=== PATIENT | female | born 1990 | race Caucasian/White ===

== ENCOUNTER 2022-06-16 17:08 | Emergency (ER) | payer BC, SELFPAY ==
[2022-06-16 17:19] VITALS: BP 125/82; PULSE 130; RESP 18; TEMP 36.6; O2SAT 100; BMI 22.7
[2022-06-16 17:43] VITALS: BP 126/87; PULSE 99; RESP 16; O2SAT 100
[2022-06-16 17:55] VITALS: O2SAT 99
[2022-06-16] MEDS: dilTIAZem 30 MG TABLET PO (17:59)
[2022-06-16 18:02] VITALS: BP 119/80; PULSE 97; RESP 16; O2SAT 100
--- NOTE | 2022-06-16 18:09 | ED.GENADULT ---
HPI - General Adult General Date Seen: 06/16/22 Chief complaint: Arrhythmia/Palpitations Stated complaint: heart episode, sent from [facility] Time Seen by Provider: 06/16/22 17:30 Source: patient and family Mode of arrival: ambulatory Limitations: no limitations History of Present Illness HPI narrative: Patient is a 31-year-old who has been having trouble for a while now with tachycardia. She has been seen a couple times by Cardiology and is currently wearing a monitor. She is supposed to see the java integration developer here in a couple of weeks. She was at work at the [facility] [employer] [facility] today when she developed tachycardia, had rates up into the 160s, and had an EKG done. I have access to that EKG and this does appear to be a sinus tachycardia to me, I see P-waves generally throughout. She gets somewhat shaky feeling when this happens. She has not had any lightheadedness or syncope. She does not get chest pain per se. She has not been started in any kind of beta-markel or calcium channel markel therapy as apparently at this point the rhythm had not been caught on a tracing. She does have a history of some sort of nodules in her neck which have been biopsied. She had thyroid testing done a little over year ago and this was normal. General health is otherwise good. She does not smoke. Related Data Home Medications Medication Instructions Recorded Confirmed levetiracetam 250 mg tablet 250 mg PO BID 06/16/22 06/16/22 (Keppra) omeprazole 20 mg capsule,delayed 20 mg PO DAILY 06/16/22 06/16/22 release Previous Rx's Medication Instructions Recorded diltiazem HCl 60 mg 60 mg PO BID #60 caps 06/16/22 capsule,extended release 12 hr Allergies Allergy/AdvReac Type Severity Reaction Status Date / Time clavulanic acid Allergy Intermediate Diarrhea Verified 06/16/22 18:09 [From Augmentin] Review of Systems Status of ROS: Reports: 10 or more systems reviewed and unremarkable except as noted in History and below [facility] Medical History (Updated 06/16/22 @ 19:18 by Lilli Rodgers MD) Choroid plexus cyst Chronic headache Chronic rhinosinusitis GERD without esophagitis Hiatal hernia Multinodular goiter Paroxysmal SVT (supraventricular tachycardia) Seizure disorder Surgical History (Updated 06/16/22 @ 18:22 by Jad Russell RN) History of breast biopsy History of esophagogastroduodenoscopy (EGD) History of tonsillectomy and adenoidectomy Social History Smoking Status: Never smoker Do you use any of these nicotine containing products: None Second hand tobacco smoke exposure: No How often do you have a drink containing alcohol: never How often do you have six or more drinks on one occasion: Never AUDIT-C Alcohol total score: 0 Non-prescribed substance use: denies use Exam Narrative: Exam Narrative: Vital signs as noted above. In general, an alert, well-appearing patient. Head: Normocephalic, atraumatic. Eyes: Pupils are equal reactive. Extraocular movements are full. Conjunctivae are normal. ENT: Mucous membranes are moist. Throat is normal. Neck: Supple without lymphadenopathy. She does have some fullness adjacent to thyroid bilaterally, this is apparently previously been worked up. I do not feel any other significant adenopathy, no other masses. No stridor. Heart: Initially tachycardic and regular, no murmur. Lungs: Clear bilaterally. No increased work of breathing, crackles or wheezes. Abdomen: Soft and nontender. No organomegaly. Extremities: Well perfused. No edema. No calf tenderness. Pulses intact. Neurologic: Patient is alert and oriented to person and place. Speech is fluent. Face is symmetric. Moves all extremities equally. Affect: Somewhat anxious. Skin: Warm and dry. Well perfused. Const: Vital Signs, click to edit/add: Vital Signs - 24 hr 06/16/22 17:19 06/16/22 17:43 06/16/22 17:55 Temperature 98 F Pulse Rate 99 Pulse Rate [Pulse Oximeter] 130 H Respiratory Rate 18 16 Blood Pressure 126/87 Blood Pressure [Ri ght Upper Arm] 125/82 Pulse Oximetry 100 100 99 Oxygen Delivery Me thod Room Air 06/16/22 18:02 06/16/22 18:31 Temperature Pulse Rate 97 83 Pulse Rate [Pulse Oximeter] Respiratory Rate 16 16 Blood Pressure 119/80 112/75 Blood Pressure [Ri ght Upper Arm] Pulse Oximetry 100 100 Oxygen Delivery Me thod Documenting provider has reviewed patient's vital signs: yes Course Course Hospital Course: On arrival, patient had an EKG which showed a normal sinus rhythm, ventricular rate of 117. I reviewed her EKGs from clinic. By my review, the shows sinus tachycardia, 1 is fairly markedly tachycardic at 160, but I do think this shows a sinus tachycardia with visible P waves throughout. The other is a sinus tachycardia at 1:10 a.m.. There are no ischemic changes. There is a fair amount of baseline waiver on the faster the 2 EKGs. She was maintained on the monitor here. Her heart rate came down nicely without really any intervention, she is running at about 100, sometimes a little slower and sometimes a little faster. She would be interested in being on something at this point to help control heart rate a little bit and I think that is probably reasonable until she sees the java integration developer. Assuming she is only having episodes of sinus tachycardia, I am not sure that the java integration developer will necessarily have a lot to offer and she may need to manage this more medically. As such, I am going to give her 30 mg of diltiazem here. She has been on atenolol in the past and did not like the way a beta-markel made her feel, we have discussed the fact that any kind of medication that blunts her heart rate response probably is going to make her feel a little bit like that but will see if she tolerates the calcium channel markel little better. I am going to check some electrolytes and a TSH just to make sure though still remain normal. Electrolytes and TSH are normal. I did go through a list of questions she had regarding other possible contributing factors such as iron, anemia, B12, vitamin deficiencies, vagal nerve problems etcetera. I am going to add on a hemoglobin for her just to make sure that that is normal, and in fact that has returned at 14.3. Overall of discussed with her that there may in fact not be a simple laboratory answer to why she is having these runs of sinus tachycardia. She does appear well after the dose of 30 mg of diltiazem here. I prescribed diltiazem for home and will see how she does with that. Etiology follow-up, avoid stimulants, which she says she he does. Return is needed for any more symptomatic spells, fainting, significant chest pain shortness of breath etcetera. Also note that she got a little redness on her chest around the area of 1 of the monitor leads, it does not appear that she is reacting to wear her ZIO patch is but more to where we had the monitor lead on. I have suggested that she try some hydrocortisone and Benadryl or Zyrtec. This looks like a contact reaction, not anaphylactic. If this spreads to include the ZIO patch, she may have to discontinue this early. Discuss as needed with Cardiology. Vital Signs Vital signs: Initial Vital Signs Temperature 98 F 06/16/22 17:19 Temperature Source Temporal Artery Scan 06/16/22 17:19 Pulse Rate 130 H 06/16/22 17:19 Respiratory Rate 18 06/16/22 17:19 Blood Pressure 125/82 06/16/22 17:19 Blood Pressure Mean 96 06/16/22 17:19 Blood Pressure Position Supine 06/16/22 17:19 Pulse Oximetry 100 06/16/22 17:19 Oxygen Delivery Method 06/16/22 17:19 Vital Signs Temperature 98 F 06/16/22 17:19 Pulse Rate 130 H 06/16/22 17:19 Respiratory Rate 18 06/16/22 17:19 Blood Pressure 125/82 06/16/22 17:19 Pulse Oximetry 100 06/16/22 17:19 Oxygen Delivery Method 06/16/22 17:19 Temperature 98 F 06/16/22 17:19 Pulse Rate 83 06/16/22 18:31 Respiratory Rate 16 06/16/22 18:31 Blood Pressure 112/75 06/16/22 18:31 Pulse Oximetry 100 06/16/22 18:31 Oxygen Delivery Method 06/16/22 17:19 Medical Decision Making Lab Data Labs: Lab Results 06/16/22 06/16/22 06/16/22 Range/Units 17:35 17:55 17:55 Hgb 14.3 (12.0-16.0) gm/dL Sodium 142 (135-149) mmol/L Potassium 4.0 (3.6-5.1) mmol/L Chloride 110 (96-114) mmol/L Carbon Dioxide 25 (20-32) mmol/L BUN 10 (5-24) mg/dL Creatinine 0.6 (0.5-1.5) mg/dL Estimated Creat Clear 129.69 Estimated GFR 121 ml/min Glucose 130 H (60-115) mg/dL Calcium 9.0 (8.4-10.6) mg/dL TSH 0.908 (0.270-4.200) uIU/mL Discharge Plan Discharge Clinical Impression: Sinus tachycardia Patient Disposition: Home, Self-Care Condition: Improved Instructions: Atrial Tachycardia (ED) Additional Instructions: Follow-up with cardiology as planned. Diltiazem is ordered. Return for significant symptoms, fainting, chest pain, or other worsening. Avoid significant caffeine or energy drinks, or other stimulants. Prescriptions: New diltiazem HCl 60 mg capsule,extended release 12 hr 60 mg PO BID Qty: 60 2RF No Action omeprazole 20 mg capsule,delayed release(DR/EC) 20 mg PO DAILY levetiracetam [Keppra] 250 mg tablet 250 mg PO BID Label Comments: take 1 tab in the morning and 2 tabs in the evening Stand Alone Forms: [employer] Info Instructions
[2022-06-16 18:11] LABS: Chloride* 110 mmol/L (96-114); Sodium* 142 mmol/L (135-149)
[2022-06-16 18:14] LABS: Blood Urea Nitrogen* 10 mg/dL (5-24); Carbon Dioxide* 25 mmol/L (20-32); Creatinine* 0.6 mg/dL (0.5-1.5); Est. Creatinine Clearance* 129.69; Estimated Glomerular Filt Rate 121 ml/min
[2022-06-16 18:15] LABS: Glucose* 130 mg/dL (60-115)
[2022-06-16 18:31] VITALS: BP 112/75; PULSE 83; RESP 16; O2SAT 100
[2022-06-16 18:59] LABS: TSH With Reflex to FT4* 0.908 uIU/mL (0.270-4.200)
[2022-06-16 19:58] LABS: Hemoglobin* 14.3 gm/dL (12.0-16.0)
== END 2022-06-16 19:36 | disposition home or self-care (01) ==
PROVIDERS: Emergency Provider Emergency Medicine; PCP Physician Assistant Medical
DX: R00.0 Tachycardia, unspecified (principal)
CPT/HCPCS: 36415; 80048; 84443; 85018; 93005; 94761; 99284; A9270

== ENCOUNTER 2022-07-29 18:04 | Emergency (ER) | payer BC, SELFPAY ==
[2022-07-29 18:10] VITALS: BP 123/79; PULSE 114; RESP 17; TEMP 36.8; O2SAT 100; BMI 21.9
--- NOTE | 2022-07-29 18:28 | ED.GENADULT ---
HPI - General Adult General Time Seen by Provider: 18:28 Date Seen: 07/29/22 Chief complaint: Arrhythmia/Palpitations Stated complaint: Super high heart rate, Watch saying in the 170s Time Seen by Provider: 07/29/22 18:08 Source: patient Mode of arrival: ambulatory Limitations: no limitations History of Present Illness HPI narrative: Patient is a 32-year-old female has had a history of problems with sinus tachycardia. She is scheduled to see shoe stitcher at [place] for ablation in August. She was on diltiazem for well per Dr. Rodgers, now is on metoprolol as needed. She took a metoprolol when her heart was racing today. She was at her son's [employer] practice sitting in the car and felt her heart racing. She did take a metoprolol about 45 minutes ago. Her heart was she reports no 170s, that is been consistent with what she has had in the past. She appears to be in a sinus tachycardia rhythm of about 110-125 now. She has no shortness of breath she has no chest pain although she generally feels ?washed out when she has this happen.? The patient is scheduled for ablation as mention. She did have recent blood work done at her last ER visit including a normal potassium and normal TSH. She has had no fever chills cough leg swelling or edema bleeding or clotting problems. Related Data Home Medications Medication Instructions Recorded Confirmed levetiracetam 250 mg tablet 250 mg PO BID 06/16/22 06/16/22 (Keppra) omeprazole 20 mg capsule,delayed 20 mg PO DAILY 06/16/22 06/16/22 release metoprolol tartrate 25 mg tablet 25 mg PO Q6H PRN palpitations 07/29/22 07/29/22 Previous Rx's Medication Instructions Recorded diltiazem HCl 60 mg 60 mg PO BID #60 caps 06/16/22 capsule,extended release 12 hr Allergies Allergy/AdvReac Type Severity Reaction Status Date / Time clavulanic acid Allergy Intermediate Diarrhea Verified 06/16/22 18:09 [From Augmentin] Review of Systems Status of ROS: Reports: 6 or more systems reviewed and unremarkable except as noted in History and below [facility] Medical History Choroid plexus cyst ?G93.0 - Cerebral cysts (ICD-10) Chronic headache ?R51.9 - Headache, unspecified (ICD-10) ?G89.29 - Other chronic pain (ICD-10) Chronic rhinosinusitis ?J31.0 - Chronic rhinitis (ICD-10) ?J32.9 - Chronic sinusitis, unspecified (ICD-10) GERD without esophagitis ?K21.9 - Gastro-esophageal reflux disease without esophagitis (ICD-10) Hiatal hernia ?K44.9 - Diaphragmatic hernia without obstruction or gangrene (ICD-10) Multinodular goiter ?E04.2 - Nontoxic multinodular goiter (ICD-10) Paroxysmal SVT (supraventricular tachycardia) ?I47.1 - Supraventricular tachycardia (ICD-10) Seizure disorder ?G40.909 - Epilepsy, unspecified, not intractable, without status epilepticus (ICD-10) Surgical History History of breast biopsy ?Z98.890 - Other specified postprocedural states (ICD-10) History of esophagogastroduodenoscopy (EGD) ?Z98.890 - Other specified postprocedural states (ICD-10) History of tonsillectomy and adenoidectomy ?Z90.89 - Acquired absence of other organs (ICD-10) Social History Smoking Status: Never smoker Do you use any of these nicotine containing products: None Second hand tobacco smoke exposure: No How often do you have a drink containing alcohol: never How often do you have six or more drinks on one occasion: Never AUDIT-C Alcohol total score: 0 Non-prescribed substance use: denies use Exam Narrative: Exam Narrative: Objective: Patient in general is alert orient x3, noncyanotic, talks in even light unlabored sentences, appears mildly anxious Vital signs are unremarkable O2 sat 100% on room air HEENT is unremarkable Chest is clear Heart rhythm regular tachycardic 2/6 systolic ejection murmur Abdomen benign soft nontender Extremities are no edema neurologic nonfocal Peripheral skin warm and dry Const: Vital Signs, click to edit/add: Vital Signs - 24 hr 07/29/22 18:10 07/29/22 18:55 Temperature 98.3 F Pulse Rate [Pulse Oximeter] 114 H 78 Respiratory Rate 17 18 Blood Pressure [Ri ght Upper Arm] 123/79 111/76 Pulse Oximetry 100 100 Oxygen Delivery Me thod Room Air Room Air Course Vital Signs Vital signs: Initial Vital Signs Temperature 98.3 F 07/29/22 18:10 Temperature Source Temporal Artery Scan 07/29/22 18:10 Pulse Rate 114 H 07/29/22 18:10 Respiratory Rate 17 07/29/22 18:10 Blood Pressure 123/79 07/29/22 18:10 Blood Pressure Mean 93 07/29/22 18:10 Pulse Oximetry 100 07/29/22 18:10 Oxygen Delivery Method Room Air 07/29/22 18:10 Vital Signs Temperature 98.3 F 07/29/22 18:10 Pulse Rate 114 H 07/29/22 18:10 Respiratory Rate 17 07/29/22 18:10 Blood Pressure 123/79 07/29/22 18:10 Pulse Oximetry 100 07/29/22 18:10 Oxygen Delivery Method Room Air 07/29/22 18:10 Temperature 98.3 F 07/29/22 18:10 Pulse Rate 78 07/29/22 18:55 Respiratory Rate 18 07/29/22 18:55 Blood Pressure 111/76 07/29/22 18:55 Pulse Oximetry 100 07/29/22 18:55 Oxygen Delivery Method Room Air 07/29/22 18:55 Medical Decision Making MDM Narrative Medical decision making narrative: [age] white female with paroxysmal sinus tachycardia that is symptomatic. The patient has worked with an EP lace paper machine operator to schedule her for ablation within the next month. The patient took a beta-markel today and seemed to have controlled her heart rate. Her EKG now shows sinus tachycardia with no EKG changes at 114 beats per minute. Her examination looks unremarkable, her lungs are clear. She has no lower extremity swelling. Think it be reasonable to keep her on a secured entrance monitor. Also I think the recurrence of this issue and the fact that she has ablation is made her somewhat anxious, think a Ativan 1 mg orally would be helpful to help the rate as well as Zhane is symptoms. She was in agreement with the plan her is here as well and agreed. I think if for heart rate remains stable we can discharge her home shortly to follow up with Cardiology as planned. Return to ED sooner as needed. Addendum: After Ativan and the beta-markel the patient took at home her heart rates in the 80s sinus rhythm no acute changes. EKG shows sinus tachycardia initially but then it is down in the 80s. She is scheduled for ablation, follow up with her primary care E EP doctor as needed. Return for her ablation as scheduled. Return to ED sooner as needed Discharge Plan Discharge Clinical Impression: Paroxysmal sinus tachycardia Patient Disposition: Home w/ Parent or Adult Condition: Improved Additional Instructions: Light activity, fluids, beta-markel p.r.n., update Cardiology as needed. Return to ED as needed. Activity Level: Light activity Discharge Diet: Regular Prescriptions: No Action omeprazole 20 mg capsule,delayed release(DR/EC) 20 mg PO DAILY levetiracetam [Keppra] 250 mg tablet 250 mg PO BID Patient Comments: take 1 tab in the morning and 2 tabs in the evening diltiazem HCl 60 mg capsule,extended release 12 hr 60 mg PO BID Qty: 60 2RF metoprolol tartrate 25 mg tablet 25 mg PO Q6H PRN (Reason: palpitations) Follow Up/Referrals: Alyse Bradley PA-C [Primary Care Provider] - Stand Alone Forms: [employer] Info Instructions
[2022-07-29] MEDS: LORazepam 1 MG TABLET PO (18:37)
[2022-07-29 18:55] VITALS: BP 111/76; PULSE 78; RESP 18; O2SAT 100
== END 2022-07-29 19:07 | disposition home or self-care (01) ==
LOC: ED 18:47
PROVIDERS: Emergency Provider Family Medicine; PCP Physician Assistant Medical
DX: I47.1 Supraventricular tachycardia (principal)
CPT/HCPCS: 99283; A9270

== ENCOUNTER 2022-08-20 17:54 | Emergency (ER) | payer BC, SELFPAY ==
[2022-08-20 18:02] VITALS: BP 123/89; PULSE 130; RESP 20; TEMP 36.6; O2SAT 100; BMI 21.9
[2022-08-20 18:50] VITALS: BP 115/71; PULSE 80; O2SAT 100
[2022-08-20 18:51] VITALS: PULSE 79; O2SAT 100
[2022-08-20 19:00] VITALS: PULSE 85; O2SAT 99
[2022-08-20 19:01] VITALS: BP 114/77; PULSE 80; O2SAT 99
--- NOTE | 2022-08-20 19:04 | ED.ARRPALP ---
HPI - Arrhythmia/Palpitations General Chief Complaint: Arrhythmia/Palpitations Stated Complaint: Fast Heartrate after Heart Ablation Time Seen by Provider: 08/20/22 18:07 History of Present Illness HPI narrative: This 32-year-old female comes in reporting symptoms related to supraventricular tachycardia. She has been having frequent recurrent episodes of increased heart rate at around 140-160 beats per minute. She had an ablation done a couple weeks ago which was unsuccessful. A loop recorder was placed at that time. She had been taking metoprolol tartrate and now is taking metoprolol succinate 25 mg. She began taking this at night time before bed. When her heart rate increases she does feel lightheaded and sometimes has some chest pain. She has had visits with agriculture consultant and electrophysiologists and has had labs and imaging studies accordingly. She arrives here with a heart rate at 134 beats per minute but at the time of my visit she had converted back to normal sinus rhythm with a rate around 80 beats per minute. Related Data Home Medications Medication Instructions Recorded Confirmed levetiracetam 250 mg tablet 250 mg PO BID 06/16/22 06/16/22 (Keppra) omeprazole 20 mg capsule,delayed 20 mg PO DAILY 06/16/22 06/16/22 release metoprolol tartrate 25 mg tablet 25 mg PO Q6H PRN palpitations 07/29/22 07/29/22 Previous Rx's Medication Instructions Recorded diltiazem HCl 60 mg 60 mg PO BID #60 caps 06/16/22 capsule,extended release 12 hr carvedilol 3.125 mg tablet (Coreg) 3.125 mg PO BID #60 tabs 08/20/22 propranolol 10 mg tablet 10 mg PO BID #60 tabs 08/20/22 Allergies Allergy/AdvReac Type Severity Reaction Status Date / Time clavulanic acid Allergy Intermediate Diarrhea Verified 06/16/22 18:09 [From Augmentin] Review of Systems Status of ROS: Reports: 10 or more systems reviewed and unremarkable except as noted in History and below Narrative: Constitutional: No fevers, no weight gain or loss. Eyes: No discharge. No vision changes. HENT: No congestion, no sore throat, no ear pain. Cardiovascular: Episodes of supraventricular tachycardia as described above. Respiratory: No shortness of breath, no wheezes, no cough. Gastrointestinal: No abdominal pain, no vomiting, no diarrhea. Genitourinary: No dysuria, no hematuria. Musculoskeletal: Normal range of motion. Skin: No rashes, no pruritis. Neurological: No dizziness, weakness, sensory change, speech change. Endo/Heme/Allergies: No bruising or bleeding. No polydipsia. Pysch: no suicidality, no anxiety, no insomnia. All other systems reviewed and are negative. [facility] Medical History Choroid plexus cyst ?G93.0 - Cerebral cysts (ICD-10) Chronic headache ?R51.9 - Headache, unspecified (ICD-10) ?G89.29 - Other chronic pain (ICD-10) Chronic rhinosinusitis ?J31.0 - Chronic rhinitis (ICD-10) ?J32.9 - Chronic sinusitis, unspecified (ICD-10) GERD without esophagitis ?K21.9 - Gastro-esophageal reflux disease without esophagitis (ICD-10) Hiatal hernia ?K44.9 - Diaphragmatic hernia without obstruction or gangrene (ICD-10) Multinodular goiter ?E04.2 - Nontoxic multinodular goiter (ICD-10) Paroxysmal SVT (supraventricular tachycardia) ?I47.1 - Supraventricular tachycardia (ICD-10) Seizure disorder ?G40.909 - Epilepsy, unspecified, not intractable, without status epilepticus (ICD-10) Surgical History History of breast biopsy ?Z98.890 - Other specified postprocedural states (ICD-10) History of esophagogastroduodenoscopy (EGD) ?Z98.890 - Other specified postprocedural states (ICD-10) History of tonsillectomy and adenoidectomy ?Z90.89 - Acquired absence of other organs (ICD-10) Social History Smoking Status: Never smoker Do you use any of these nicotine containing products: None Second hand tobacco smoke exposure: No How often do you have a drink containing alcohol: never How often do you have six or more drinks on one occasion: Never AUDIT-C Alcohol total score: 0 Non-prescribed substance use: denies use Exam Narrative: Exam Narrative: Constitutional: Well-developed, well-nourished, no acute distress. HEENT: Normocephalic, atraumatic. Neck: Normal range of motion. Nontender. Supple. Heart: Regular. No murmurs. Normal rate. Intact distal pulses. Lungs: Clear to auscultation. No chest discomfort. No wheezes, rhonchi, or rales. Abdomen: Normal bowel sounds. Nontender. No rebound tenderness. Genitalia: Deferred. Back: No midline tenderness. Normal range of motion. Extremities: Normal range of motion. No injury. Skin: Intact. No rash. Warm. No erythema or pallor. Neurologic: No altered sensation. No weakness. Alert and oriented. Psychiatric: No suicidality. No anxiety or depression. No insomnia. Nursing notes and vitals signs are reviewed. Const: Vital Signs, click to edit/add: Vital Signs - 24 hr 08/20/22 18:02 08/20/22 18:50 08/20/22 18:51 Temperature 97.8 F Pulse Rate 80 79 Pulse Rate [Pulse Oximeter] 130 H Respiratory Rate 20 Blood Pressure 115/71 Blood Pressure [Ri ght Upper Arm] 123/89 Pulse Oximetry 100 100 100 Oxygen Delivery Me thod Room Air Course Vital Signs Vital signs: Initial Vital Signs Temperature 97.8 F 08/20/22 18:02 Temperature Source Temporal Artery Scan 08/20/22 18:02 Pulse Rate 130 H 08/20/22 18:02 Pulse Rhythm Regular 08/20/22 18:02 Respiratory Rate 20 08/20/22 18:02 Blood Pressure 123/89 08/20/22 18:02 Blood Pressure Mean 100 08/20/22 18:02 Blood Pressure Position Sitting 08/20/22 18:02 Pulse Oximetry 100 08/20/22 18:02 Oxygen Delivery Method Room Air 08/20/22 18:02 Vital Signs Temperature 97.8 F 08/20/22 18:02 Pulse Rate 130 H 08/20/22 18:02 Respiratory Rate 20 08/20/22 18:02 Blood Pressure 123/89 08/20/22 18:02 Pulse Oximetry 100 08/20/22 18:02 Oxygen Delivery Method Room Air 08/20/22 18:02 Temperature 97.8 F 08/20/22 18:02 Pulse Rate 79 08/20/22 18:51 Respiratory Rate 20 08/20/22 18:02 Blood Pressure 115/71 08/20/22 18:50 Pulse Oximetry 100 08/20/22 18:51 Oxygen Delivery Method Room Air 08/20/22 18:02 MDM - Arrhythmia/Palpitations MDM Narrative Medical decision making narrative: This patient has having recurrent episodes of supraventricular tachycardia that usually resolves spontaneously. She did have an ablation which was unsuccessful. She is currently taking metoprolol succinate 25 mg at bedtime. Her symptoms are happening during the day possibly when this medicine has reached its peak and is wearing off. I did discuss lab and imaging options with the patient which were declined as she has had all of these studies done rather recently. She is feeling back to normal and continues in normal sinus rhythm. I recommended that she take her metoprolol in the morning as this may benefit her better through the day. She does report some generalized feelings of malaise and occasional lightheadedness that she attributes to this medicine. She had been on metoprolol tartrate in the past. She does have some of these tablets at home which could be taken in addition to her daily medicine if having breakthrough SVT. It seems reasonable to give her some other options that may provide a better benefit and left side effects. I did prescribe low-dose of carvedilol 3.125 mg and propranolol 10 mg which she understands may be used in addition to her regular dosing if needed or perhaps more appropriately as an alternative to metoprolol in an attempt to have better control without adverse effects. I stated that this is just a trial and recommended that she follow-up with her primary doctor or agriculture consultant for further management. ECG Data Attestation: I personally reviewed and interpreted this ECG as follows: Interpretation: Sinus tachycardia, rate 134 beats per minute. There are no specific ST or T-wave abnormalities. Discharge Plan Discharge Clinical Impression: Supraventricular tachycardia Patient Disposition: Home, Self-Care Condition: Improved Additional Instructions: Take metoprolol succinate 25 mg in the morning. Alternatively consider propranolol or carvedilol has prescribed in attempt to minimize adverse effects and prevent SVT. Follow-up with primary physician or agriculture consultant to review medications and ongoing management. Prescriptions: New propranolol 10 mg tablet 10 mg PO BID Qty: 60 2RF carvedilol [Coreg] 3.125 mg tablet 3.125 mg PO BID Qty: 60 2RF Rx Instructions: must administer with a meal/food No Action omeprazole 20 mg capsule,delayed release(DR/EC) 20 mg PO DAILY levetiracetam [Keppra] 250 mg tablet 250 mg PO BID Patient Comments: take 1 tab in the morning and 2 tabs in the evening diltiazem HCl 60 mg capsule,extended release 12 hr 60 mg PO BID Qty: 60 2RF metoprolol tartrate 25 mg tablet 25 mg PO Q6H PRN (Reason: palpitations) Follow Up/Referrals: Alyse Bradley PAScottie [Primary Care Provider] - Stand Alone [facility] Info Inst[facility]
[2022-08-20 19:15] VITALS: PULSE 77; O2SAT 100
== END 2022-08-20 19:27 | disposition home or self-care (01) ==
LOC: ED 19:16
PROVIDERS: Emergency Provider Emergency Medicine Emergency Medical Services; PCP Physician Assistant Medical
DX: I47.1 Supraventricular tachycardia (principal)
CPT/HCPCS: 93005; 99283; 99284

== ENCOUNTER 2022-10-23 14:39 | Emergency (ER) | payer BC, SELFPAY ==
[2022-10-23] VITALS (35 sets, daily range): BP systolic 110–125; BP diastolic 74–93; PULSE 76–118; RESP 16–20; TEMP 36.5; O2SAT 98–100; BMI 21.9
--- NOTE | 2022-10-23 15:35 | ED.ARRPALP ---
HPI - Arrhythmia/Palpitations General Time Seen by Provider: 15:35 Date Seen: 10/23/22 Chief Complaint: Arrhythmia/Palpitations Stated Complaint: Irregular heartrate/abnormal ekg Time Seen by Provider: 10/23/22 15:35 Source: patient, RN notes reviewed and old records reviewed Mode of arrival: ambulatory Limitations: no limitations History of Present Illness HPI narrative: Patient is a very pleasant 32-year-old female who has had a history of intermittent tachycardia, failed ablation currently has an implanted hospital monitor who comes to the emergency room with chest pain. Patient notes that she has been dealing with this for quite some time and they are un sure how to fix this. Over the last 2 weeks she has new anterior chest pain. Today she was working at the [facility] and had the sudden onset of a rapid heart rate in association with left anterior chest pain. In triage she was tachycardic but is improved at this time. Her chest pain is much improved as well. She denies history of DVT, lower extremity edema, recent extended car rides or plane trips. On family history of DVT. She has not had any recent cough cold congestion or virus. In no history of pericarditis. Patient has a loop recorder implanted since August 08 after the failed ablation. 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 She will have episodes of rapid heart rate sometimes daily but sometimes only once every 4 days. She initially was on metoprolol but this really slowed her down and of switched to verapamil which had helped. She has had her TSH tested multiple times. Related Data Home Medications Medication Instructions Recorded Confirmed levetiracetam 250 mg tablet 250 mg PO BID 06/16/22 06/16/22 (Ketim) omeprazole 20 mg capsule,delayed 20 mg PO DAILY 06/16/22 06/16/22 release metoprolol tartrate 25 mg tablet 25 mg PO Q6H PRN palpitations 07/29/22 07/29/22 Previous Rx's Medication Instructions Recorded diltiazem HCl 60 mg 60 mg PO BID #60 caps 06/16/22 capsule,extended release 12 hr carvedilol 3.125 mg tablet (Coreg) 3.125 mg PO BID #60 tabs 08/20/22 propranolol 10 mg tablet 10 mg PO BID #60 tabs 08/20/22 Allergies Allergy/AdvReac Type Severity Reaction Status Date / Time clavulanic acid Allergy Intermediate Diarrhea Verified 06/16/22 18:09 [From Augmentin] Review of Systems Status of ROS: Reports: 10 or more systems reviewed and unremarkable except as noted in History and below Const: Denies: fever or chills Eyes: Denies: change in vision ENMT: Denies: throat pain, neck pain or difficulty swallowing Cardio: Reports: chest pain, palpitations and shortness of breath with exertion; Denies: edema or swelling of feet/ankles Resp: Reports: shortness of breath; Denies: cough or wheezing GI: Denies: abdominal pain, nausea, vomiting, diarrhea or difficulty swallowing : Denies: painful urination or urinary frequency Musculo: Denies: back pain, neck pain, extremity pain or extremity swelling Neuro: Denies: headache or numbness in extremities Allergy/Immuno: Denies: wheezing PFSH PFSH Medical History Choroid plexus cyst ?G93.0 - Cerebral cysts (ICD-10) Seizure disorder ?G40.909 - Epilepsy, unspecified, not intractable, without status epilepticus (ICD-10) Multinodular goiter ?E04.2 - Nontoxic multinodular goiter (ICD-10) GERD without esophagitis ?K21.9 - Gastro-esophageal reflux disease without esophagitis (ICD-10) Hiatal hernia ?K44.9 - Diaphragmatic hernia without obstruction or gangrene (ICD-10) Chronic headache ?R51.9 - Headache, unspecified (ICD-10) ?G89.29 - Other chronic pain (ICD-10) Chronic rhinosinusitis ?J31.0 - Chronic rhinitis (ICD-10) ?J32.9 - Chronic sinusitis, unspecified (ICD-10) Paroxysmal SVT (supraventricular tachycardia) ?I47.1 - Supraventricular tachycardia (ICD-10) Surgical History History of esophagogastroduodenoscopy (EGD) ?Z98.890 - Other specified postprocedural states (ICD-10) History of breast biopsy ?Z98.890 - Other specified postprocedural states (ICD-10) History of tonsillectomy and adenoidectomy ?Z90.89 - Acquired absence of other organs (ICD-10) Social History Smoking Status: Never smoker Do you use any of these nicotine containing products: None Second hand tobacco smoke exposure: No How often do you have a drink containing alcohol: never How often do you have six or more drinks on one occasion: Never AUDIT-C Alcohol total score: 0 Non-prescribed substance use: denies use service: No Exam Narrative: Exam Narrative: Patient is alert and oriented very pleasant woman. Currently in no acute distress but does appear somewhat fatigued in of course frustrated at having to be in the emergency room. EOM is full. Mentation is normal in speech is normal. Heart with a regular rate and rhythm at this time. I do have patient leaned forward and I do not auscultate rub. Heart rate goes from 80s up into the 100s with just this small movement. Lung sounds are clear throughout. Abdomen soft. No lower extremity edema. Const: Vital Signs, click to edit/add: Vital Signs - 24 hr 10/23/22 14:52 10/23/22 15:18 10/23/22 15:19 Temperature 97.7 F Pulse Rate 89 89 Pulse Rate [Pulse Oximeter] 100 Pulse Rate [orthos tatic lying Left A pical] Pulse Rate [orthos tatic sitting Left Apical] Pulse Rate [orthos tatic standing Lef t Apical] Respiratory Rate 20 Blood Pressure 119/82 Blood Pressure [Ri ght Upper Arm] 114/78 Blood Pressure [or thostatic lying Le ft Arm] Blood Pressure [or thostatic sitting Left Arm] Blood Pressure [or thostatic standing Left Arm] Pulse Oximetry 100 100 100 Oxygen Delivery Me thod Room Air 10/23/22 15:30 10/23/22 15:31 10/23/22 15:45 Temperature Pulse Rate 77 77 76 Pulse Rate [Pulse Oximeter] Pulse Rate [orthos tatic lying Left A pical] Pulse Rate [orthos tatic sitting Left Apical] Pulse Rate [orthos tatic standing Lef t Apical] Respiratory Rate 16 Blood Pressure 110/78 Blood Pressure [Ri ght Upper Arm] Blood Pressure [or thostatic lying Le ft Arm] Blood Pressure [or thostatic sitting Left Arm] Blood Pressure [or thostatic standing Left Arm] Pulse Oximetry 100 100 100 Oxygen Delivery Me thod 10/23/22 15:57 10/23/22 16:00 10/23/22 16:01 Temperature Pulse Rate 102 H 81 82 Pulse Rate [Pulse Oximeter] Pulse Rate [orthos tatic lying Left A pical] Pulse Rate [orthos tatic sitting Left Apical] Pulse Rate [orthos tatic standing Lef t Apical] Respiratory Rate Blood Pressure 123/81 115/78 Blood Pressure [Ri ght Upper Arm] Blood Pressure [or thostatic lying Le ft Arm] Blood Pressure [or thostatic sitting Left Arm] Blood Pressure [or thostatic standing Left Arm] Pulse Oximetry 100 100 100 Oxygen Delivery Ca thod 10/23/22 16:31 Temperature Pulse Rate Pulse Rate [Pulse Oximeter] Pulse Rate [orthos tatic lying Left A pical] 77 Pulse Rate [orthos tatic sitting Left Apical] 87 Pulse Rate [orthos tatic standing Lef t Apical] 91 Respiratory Rate Blood Pressure Blood Pressure [Ri ght Upper Arm] Blood Pressure [or thostatic lying Le ft Arm] 112/76 Blood Pressure [or thostatic sitting Left Arm] 125/93 H Blood Pressure [or thostatic standing Left Arm] 111/85 Pulse Oximetry Oxygen Delivery Ca thod Documenting provider has reviewed patient's vital signs: yes Course Course Hospital Course: At this time patient has been dealing with episodes of paroxysmal SVT but has only had pain associated with this over the last 2 weeks. Initially tachycardic in triage her heart rate improved to normal by the time I saw her but simply having her sit up in bed cause tachycardia once again. She does have a normal O2 sat at this time and no history of or recent activities that would suggest PE. However, given the fact that her symptoms have changed I do suggest EKG/troponin rule out, cardiac monitoring, CBC, comprehensive panel, CRP, D-dimer and chest x-ray. Will also check magnesium and vitamin-D check TSH today as she has had this checked multiple times. Reevaluation(s) Reevaluation #1: Patient noted to have orthostatic vital signs not significantly indicative of dehydration. In fact heart rate did rise from 77-91 from says lying down to standing but certainly not as impressive of as increase when I had her sit up in her bed. D-dimer has now come back at 0.70. I do think that we should rule out any evidence of PE given the new symptoms she has been experiencing. She is receptive to CT PE study. Reevaluation #2: After departing the room patient becomes very tachycardic in the 140s to 150s. I do have her try vagal maneuvers which are partially successful. Patient notes that she is upset worried about blood clots. However quickly heart rate comes back to normal. Vital Signs Vital signs: Initial Vital Signs Temperature 97.7 F 10/23/22 14:52 Temperature Source Temporal Artery Scan 10/23/22 14:52 Pulse Rate 100 10/23/22 14:52 Pulse Rhythm Irregular 10/23/22 14:52 Respiratory Rate 20 10/23/22 14:52 Blood Pressure 114/78 10/23/22 14:52 Blood Pressure Mean 90 10/23/22 14:52 Pulse Oximetry 100 10/23/22 14:52 Oxygen Delivery Method Room Air 10/23/22 14:52 Vital Signs Temperature 97.7 F 10/23/22 14:52 Pulse Rate 100 10/23/22 14:52 Respiratory Rate 20 10/23/22 14:52 Blood Pressure 114/78 10/23/22 14:52 Pulse Oximetry 100 10/23/22 14:52 Oxygen Delivery Method Room Air 10/23/22 14:52 Temperature 97.7 F 10/23/22 14:52 Pulse Rate 77 10/23/22 16:31 Respiratory Rate 16 10/23/22 15:31 Blood Pressure 112/76 10/23/22 16:31 Pulse Oximetry 100 10/23/22 16:01 Oxygen Delivery Method Room Air 10/23/22 14:52 MDM - Arrhythmia/Palpitations MDM Narrative Medical decision making narrative: 1. PSVT-episodes of PSVT observed here in the emergency room. Patient did respond well to vagal maneuvers. Electrolytes reassuring at this time. 2. Chest pain-EKG without evidence of ST or T-wave changes and initial troponin is negative. Second troponin is currently pending. 3. Elevated [id number] awaiting CT of the chest PE study. 4. Disposition-this case will be signed out to my partner Dr. Michelle Guevara for further disposition. Medical Records Attestation: I reviewed the patient's medical records. Lab Data Attestation: I reviewed the patient's lab results. Labs: Lab Results 10/23/22 Range/Units 16:00 WBC 6.62 (4.50-11.00) K/uL RBC 4.86 (4.00-5.20) m/uL Hgb 14.0 (12.0-16.0) gm/dL Hct 42.2 (33.0-51.0) % MCV 87 (80-100) fL MCH 29 (26-34) pg MCHC 33 (32-36) gm/dL RDW Coeff of Vikas 12.6 (11.5-15.5) % Plt Count 230 (140-440) K/uL Neut % (Auto) 67.2 (42.0-72.0) % Lymph % (Auto) 21.6 (20-44) % Morrill % (Auto) 7.9 (0.0-11.0) % Eos % (Auto) 2.9 (0.0-7.0) % Baso % (Auto) 0.2 (0.0-3.0) % Neut # (Auto) 4.46 (1.7-7.0) K/uL Lymph # (Auto) 1.43 (0.90-2.90) K/uL Morrill # (Auto) 0.50 (0.00-0.90) K/UL Eos # (Auto) 0.19 (0.00-0.50) K/uL Baso # (Auto) 0.01 (0.00-0.30) K/uL D-Dimer Quant (PE/DVT) 0.70 H (0.00-0.50) ug/ml Sodium 139 (135-149) mmol/L Potassium 4.0 (3.6-5.1) mmol/L Chloride 106 (96-114) mmol/L Carbon Dioxide 24 (20-32) mmol/L BUN 10 (5-24) mg/dL Creatinine 0.6 (0.5-1.5) mg/dL Estimated Creat Clear 128.48 Estimated GFR 121 ml/min Glucose 103 (60-115) mg/dL Calcium 9.2 (8.4-10.6) mg/dL Magnesium 2.0 (1.5-2.6) mg/dL Total Bilirubin 0.4 (0.1-1.5) mg/dL AST 23 (12-35) U/L ALT 17 (4-35) U/L Alkaline Phosphatase 69 (40-150) U/L C-Reactive Protein < 0.5 L (0.5-1.0) mg/dL Total Protein 7.6 (6.0-8.3) g/dL Albumin 4.6 (3.3-5.0) g/dL POC Troponin I 0.00 L (0.01-0.04) ng/ml Imaging Data Chest x-ray: Attestation: I have reviewed the pertinent imaging results. My impression: No obvious infiltrates or pneumothorax Radiologist's impression: Cardiovascular and mediastinum: Heart size and vasculature are normal in caliber and appearance. Lungs and pleural space: Lungs are clear. No sign of infiltrate or mass. No sign of pleural effusion. No pneumothorax. Bones and soft tissues: Loop recorder overlies the left hemithorax. ECG Data Attestation: I personally reviewed and interpreted this ECG as follows: ECG interpretation date: 10/23/22 Interpretation: Sinus tachycardia at a rate of 101. I do not note any acute ST or T-wave changes. I do not note a delta wave. QT and NC intervals within normal limits. Discharge Plan Discharge Clinical Impression: Supraventricular tachycardia, D-dimer, elevated Patient Disposition: Home, Self-Care Condition: Improved Additional Instructions: Her magnesium level was 2.0 today. Magnesium supplementation can sometimes help prevent rapid heart rates. I would suggest the use of magnesium glycinate 300-400 mg daily. Avoid the use of magnesium citrate or oxide is these are more likely to be used as laxatives. Your vitamin-D level is Prescriptions: No Action omeprazole 20 mg capsule,delayed release(DR/EC) 20 mg PO DAILY levetiracetam [Keppra] 250 mg tablet 250 mg PO BID Patient Comments: take 1 tab in the morning and 2 tabs in the evening diltiazem HCl 60 mg capsule,extended release 12 hr 60 mg PO BID Qty: 60 2RF metoprolol tartrate 25 mg tablet 25 mg PO Q6H PRN (Reason: palpitations) propranolol 10 mg tablet 10 mg PO BID Qty: 60 2RF carvedilol [Coreg] 3.125 mg tablet 3.125 mg PO BID Qty: 60 2RF Rx Instructions: must administer with a meal/food Follow Up/Referrals: Alyse Bradley PA-C [Primary Care Provider] - Stand Alone Forms: [employer] Info Instructions
--- NOTE | 2022-10-23 15:52 | CRLHL7_ITS ---
For Patients: As a result of the Century Cures Act, medical imaging exams and procedure reports are released immediately into your electronic medical record. You may view this report before your referring provider. If you have questions, please contact your health care provider. Indication: Chest pain, dizziness and shortness of breath Technique: Chest 1 view Comparison: Chest x-ray 11/07/2014 Findings/Impression: Cardiovascular and mediastinum: Heart size and vasculature are normal in caliber and appearance. Lungs and pleural space: Lungs are clear. No sign of infiltrate or mass. No sign of pleural effusion. No pneumothorax. Bones and soft tissues: Loop recorder overlies the left hemithorax. Dictated by Riky Mast MD @ 10/23/2022 5:12:49 PM (Electronically Signed)
[2022-10-23 16:17] LABS: Basophils Absolute Auto 0.01 K/uL (0.00-0.30); Basophils Percent Auto 0.2 % (0.0-3.0); Eosinophils Absolute Auto 0.19 K/uL (0.00-0.50); Eosinophils Percent Auto 2.9 % (0.0-7.0); Hematocrit 42.2 % (33.0-51.0); Immature Granulocytes Abs Auto 0.01 K/uL (0.00-0.30); Immature Granulocytes Pct Auto 0.2 %; Lymphocytes Absolute Auto 1.43 K/uL (0.90-2.90); Lymphocytes Percent Auto 21.6 % (20-44); Mean Corpuscular HGB Conc 33 gm/dL (32-36); Mean Corpuscular Hemoglobin 29 pg (26-34); Mean Corpuscular Volume 87 fL (80-100); Monocytes Percent Auto 7.9 % (0.0-11.0); Neutrophils Absolute Auto 4.46 K/uL (1.7-7.0); Neutrophils Percent Auto 67.2 % (42.0-72.0); Platelet Count* 230 K/uL (140-440); RDW Coefficient of Variation % 12.6 % (11.5-15.5); Red Blood Count 4.86 m/uL (4.00-5.20); White Blood Count* 6.62 K/uL (4.50-11.00)
[2022-10-23 16:36] LABS: Slide Review Reflex No
--- NOTE | 2022-10-23 16:50 | ED.NURSE ---
reports that the chest discomfort is gone. this is vague type pain. the pain went awway after ~15 min.
[2022-10-23 17:00] LABS: Alanine Aminotransferase* 17 U/L (4-35); Albumin* 4.6 g/dL (3.3-5.0); Aspartate Amino Transferase* 23 U/L (12-35); Bilirubin Total* 0.4 mg/dL (0.1-1.5); Blood Urea Nitrogen* 10 mg/dL (5-24); Calcium* 9.2 mg/dL (8.4-10.6); Carbon Dioxide* 24 mmol/L (20-32); Chloride* 106 mmol/L (96-114); Creatinine* 0.6 mg/dL (0.5-1.5); Est. Creatinine Clearance* 128.48; Estimated Glomerular Filt Rate 121 ml/min; Glucose* 103 mg/dL (60-115); Sodium* 139 mmol/L (135-149); Total Protein* 7.6 g/dL (6.0-8.3)
[2022-10-23 17:01] LABS: Alkaline Phosphatase* 69 U/L (40-150); C Reactive Protein* < 0.5 mg/dL (0.5-1.0)
--- NOTE | 2022-10-23 17:15 | CRLHL7_ITS ---
For Patients: As a result of the Century Cures Act, medical imaging exams and procedure reports are released immediately into your electronic medical record. You may view this report before your referring provider. If you have questions, please contact your health care provider. INDICATION: CHEST PAIN, INTERMITTENT TACHYCARDIA, ELEVATED D DIMER COMPARISON: none TECHNIQUE: CT volumetric acquisition was performed of the thorax during intravenous infusion of 95 cc Isovue 370 nonionic intravenous contrast. Please note that all CT scans at this facility use dose modulation, iterative reconstruction, and/or weight-based dosing when appropriate to reduce radiation dose to as low as reasonably achievable. FINDINGS: The CT images are of acceptable quality and demonstrate normal uniform vascular enhancement within the pulmonary arteries. There are no suspicious filling defects which would indicate pulmonary thromboemboli. There is no evidence of pleural or pericardial fluid. The heart and thoracic aorta appear normal. There is no evidence of lymphadenopathy within the central mediastinum or within either axilla. On lung window settings, there is no evidence of pneumothorax. The pulmonary parenchyma has uniform density and there is no evidence of hemorrhage or pneumonia. IMPRESSION: No evidence of pulmonary thromboembolism. Please note that all CT scans at this facility use dose modulation, iterative reconstruction, and/or weight-based dosing when appropriate to reduce radiation dose to as low as reasonably achievable. Dictated by Kimani Meyer MD @ 10/23/2022 7:32:07 PM (Electronically Signed)
--- NOTE | 2022-10-23 17:19 | ED.NURSE ---
had an episode of tachycardia up to 154. dr tatum was aware and did use vagal maneuver of bearing down with blowing into a straw type device. the tachycardia lasted ~5 minutes. is very nervous and told doctor that she was afraid when they stated she needed to be checked for a blood clot.
[2022-10-25 19:55] LABS: Vitamin D, 1,25-Dihydroxy 45.3 pg/mL (19.9-79.3)
== END 2022-10-23 19:53 | disposition home or self-care (01) ==
PROVIDERS: Family Medicine; Emergency Provider Family Medicine; PCP Physician Assistant Medical
DX: R07.9 Chest pain, unspecified (principal); I47.1 Supraventricular tachycardia; R79.89 Other specified abnormal findings of blood chemistry
CPT/HCPCS: 36415; 71045; 71260; 80053; 82652; 83735; 84484; 85025; 85379; 86140; 93005; 99284; 99285; Q9967

== ENCOUNTER 2023-02-16 06:38 | Outpatient (CLI) | payer BC, SELFPAY ==
--- NOTE | 2023-02-16 07:42 | W.ANESCHARGE ---
Anesthesia Charges Start Date/Time Anesthesia Start Date: 02/16/23 Anesthesia Start Time: 07:21 Stop Date/Time Anesthesia Stop Date: 02/16/23 Anesthesia Stop Time: 07:37
== END 2023-02-16 06:39 | disposition home or self-care (01) ==
LOC: OP CLINIC 06:39
PROVIDERS: PCP Family Medicine; Visit Provider Internal Medicine Gastroenterology
DX: R13.10 Dysphagia, unspecified (principal); K22.89 Other specified disease of esophagus; K21.9 Gastro-esophageal reflux disease without esophagitis; R10.13 Epigastric pain
CPT/HCPCS: 00731; 43239; 88305; J2704

== ENCOUNTER 2023-03-05 07:38 | Outpatient (CLI) | payer BC, SELFPAY ==
--- NOTE | 2023-03-05 08:00 | CRLHL7_ITS ---
For Patients: As a result of the Century Cures Act, medical imaging exams and procedure reports are released immediately into your electronic medical record. You may view this report before your referring provider. If you have questions, please contact your health care provider. INDICATION: ABDOMINAL PAIN, RUQ TECHNIQUE: 5.12mCi [id number] was injected intravenously. Images of the liver, gallbladder and abdomen were obtained for 55 minutes. 1.27mcg intravenous CCK was then administered and imaging continued for an additional 27 minutes. COMPARISON: None FINDINGS: There is good uptake of activity by the hepatocytes. There is visualization of the biliary tree, gallbladder and small bowel. In response to CCK administration, the gallbladder ejection fraction is 11 percent. IMPRESSION: Decreased gallbladder ejection fraction 11 percent compatible with biliary dyskinesia or chronic cholecystitis. Dictated by Kimani Meyer MD @ 03/06/2023 1:46:53 PM (Electronically Signed)
== END 2023-03-05 07:39 | disposition home or self-care (01) ==
LOC: NM 07:38
PROVIDERS: PCP Family Medicine; Visit Provider Family Medicine
DX: K80.20 Calculus of gallbladder without cholecystitis without obstruction (principal); R10.11 Right upper quadrant pain
CPT/HCPCS: 78227; A9537; J2805

== ENCOUNTER 2023-03-24 06:11 | Day surgery (SDC) | payer BC, SELFPAY ==
[2023-03-24] VITALS (15 sets, daily range): BP systolic 106–134; BP diastolic 74–105; PULSE 75–100; RESP 12–16; TEMP 36.1–36.8; O2SAT 98–100; BMI 21.7
[2023-03-24] MEDS: LACTATED RINGERS 1000 ML 1,000 ML 100 ML IV ×2 (06:05→08:50)
[2023-03-24 06:41] LABS: Ur HCG Qualitative* Negative (Negative)
[2023-03-24] MEDS: SODIUM CHLORIDE 0.9 % (FLUSH) 10 ML SYRINGE IVF (06:48)
[2023-03-24] MEDS: CEFAZOLIN 2 GM INJ IVP (07:50)
--- NOTE | 2023-03-24 08:02 | W.ANESCHARGE ---
Anesthesia Charges Start Date/Time Anesthesia Start Date: 03/24/23 Anesthesia Start Time: 07:40 Stop Date/Time Anesthesia Stop Date: 03/24/23 Anesthesia Stop Time: 09:13
[2023-03-24] MEDS: BUPIVACAINE 0.5% 30 ML INJECTION (08:50)
--- NOTE | 2023-03-24 09:02 | PM.GSPRC ---
Operative Note Pre-op diagnosis: Biliary colic Post-op diagnosis: same Type of Procedure: laparoscopic cholecystectomy Indications: patient is a 32-year-old female who presented to clinic with clinical workup and symptoms consistent with biliary colic. Risks and benefits of operative intervention were discussed at length with the patient. Risks included but was not limited to: Bleeding, infection, risk of damage to surrounding structures, possible need for additional procedures, possible need to convert to an open operation and postoperative complications such as pneumonia, pulmonary emboli or CO. All questions and concerns were addressed with the patient agreeing to proceed. Procedure Description: After discussing the risks and benefits of the procedure, the patient signed informed consent.? The operative site was marked and the patient was brought to the operating room and placed on the operating table in supine position.? Care was taken to pad the patient's pressure points.?? The patient was then intubated by anesthesia.?? The operative site was then prepped and draped in the usual sterile fashion.? A time-out was then performed. Entrance to the abdomen was gained via a 5 mm Visiport in the left upper quadrant. The abdomen was insufflated and briefly surveyed for signs of injury. There was none. 11 mm umbilical port was placed as well as 2 working ports along the right costal margin. Patient was then placed in reverse Trendelenburg position with the right side up. The gallbladder fundus was grasped and retracted cephalad. A small amount of dissection was needed to free omental adhesions from the gallbladder. The infundibulum was grasped. A combination of hook cautery and blunt dissection was used to carefully dissect out the cystic duct and artery until they could clearly be seen entering the gallbladder without any intervening structures. The gallbladder was dissected off the cystic plate to achieve the critical view. Once this was achieved the cystic duct and artery were each clipped with 2 clips proximally and 1 clip distally and transected with the scissors. The gallbladder was then taken off of the liver bed. A small bleeding vein was clipped on the gallbladder fossa. The gallbladder was removed from the abdomen using an Endo-Catch bag. The gallbladder bed was surveyed for hemostasis, which was excellent. The ports were then removed under direct vision. The umbilical port fascia was closed with 0 Vicryl. The skin was closed with absorbable subcuticular suture. Instrument sponge and needle counts were correct at the end of the case. The patient was then woken and transferred to the PACU in stable condition. Findings: Normal appearing gallbladder Surgeon: Sona Henderson MD Estimated blood loss (mL): 5 Specimen: Gallbladder Condition: stable Disposition: PACU Date of procedure: 03/24/23
[2023-03-24] MEDS: ONDANSETRON 2 MG/ML inj 4 MG IVP (09:21)
--- NOTE | 2023-03-24 09:25 | W.ANESCHARGE ---
Anesthesia Charges Start Date/Time Anesthesia Start Date: 03/24/23 Anesthesia Start Time: 07:40 Stop Date/Time Anesthesia Stop Date: 03/24/23 Anesthesia Stop Time: 09:13
[2023-03-24] MEDS: MEPERIDINE 25 MG/ML INJ 12.5 MG IVP (09:30)
--- NOTE | 2023-03-24 09:48 | SUR.PHASEI ---
patient met discharge criteria per anesthesia
[2023-03-24] MEDS: HYDROCODONE-ACETAMIN 5-325 MG 1 TAB PO (10:02)
== END 2023-03-24 11:41 | disposition home or self-care (01) ==
PROVIDERS: PCP Family Medicine; Visit Provider Surgery
PROC: 0FT44ZZ Resection of Gallbladder, Percutaneous Endoscopic Approach (ICD-10-PCS; CPT 47562; principal; 2023-03-24 07:30)
DX: K81.1 Chronic cholecystitis (principal)
CPT/HCPCS: 47562; 790; 81025; 88304; A9270; J0330; J0665; J0690; J1100; J1170; J1885; J2175; J2250; J2405; J2704; J2710; J3010; J7120

== ENCOUNTER 2023-04-23 13:00 | Outpatient (RCR) | payer BC, SELFPAY | END 2023-07-29 13:40 | disposition home or self-care (01) | PROVIDERS: PCP Family Medicine; Visit Provider Family Medicine | DX: M25.561 Pain in right knee (principal); M25.562 Pain in left knee; G89.29 Other chronic pain; M62.89 Other specified disorders of muscle; N39.3 Stress incontinence (female) (male); R27.8 Other lack of coordination; Z51.89 Encounter for other specified aftercare | CPT/HCPCS: 97110; 97112; 97140; 97161; 97535 ==

== ENCOUNTER 2023-11-06 11:05 | Outpatient (CLI) | payer BC, SELFPAY ==
--- NOTE | 2023-11-06 12:01 | W.ANESCHARGE ---
Anesthesia Charges Start Date/Time Anesthesia Start Date: 11/06/23 Anesthesia Start Time: 12:13 Stop Date/Time Anesthesia Stop Date: 11/06/23 Anesthesia Stop Time: 12:47
--- NOTE | 2023-11-06 12:48 | W.ANESCHARGE ---
Anesthesia Charges Start Date/Time Anesthesia Start Date: 11/06/23 Anesthesia Start Time: 12:13 Stop Date/Time Anesthesia Stop Date: 11/06/23 Anesthesia Stop Time: 12:47
== END 2023-11-06 11:06 | disposition home or self-care (01) ==
LOC: OP CLINIC 11:06
PROVIDERS: PCP Family Medicine; Visit Provider Internal Medicine Gastroenterology
DX: K92.1 Melena (principal); K64.8 Other hemorrhoids; K63.5 Polyp of colon
CPT/HCPCS: 00811; 00812; 45381; 45385; 88305; J2704

== ENCOUNTER 2024-01-05 07:28 | Outpatient (RCR) | payer BC, SELFPAY | END 2024-05-04 23:59 | disposition home or self-care (01) | PROVIDERS: PCP Family Medicine; Visit Provider Family Medicine | DX: G25.89 Other specified extrapyramidal and movement disorders (principal); M54.2 Cervicalgia; G89.29 Other chronic pain; M25.519 Pain in unspecified shoulder; G43.909 Migraine, unspecified, not intractable, without status migrainosus; R29.3 Abnormal posture; R29.898 Other symptoms and signs involving the musculoskeletal system; Z51.89 Encounter for other specified aftercare | CPT/HCPCS: 97110; 97162 ==